=== PATIENT | female | born 1975 | race Caucasian/White ===

== ENCOUNTER 2017-05-20 07:32 | Day surgery (SDC) | payer OTHER ==
[~2017-05-20 07:32] MED LIST: HYDROmorphone 2 MG/ML VIAL IV; LIDOCAINE 1% PF 2 ML VIAL. ID; PROCHLORPERAZINE 10 MG/2 ML VIAL. IV; fentaNYL PF VIAL 100 MCG/2 ML VIAL IV
[2017-05-20] MEDS: IV RINGERS,LACTATED 1000ML 1,000 ML IV (07:57)
[2017-05-20] MEDS ORDERED: MIDAZOLAM HCL/PF 2 MG/2 ML VIAL. (08:21)
[2017-05-20] MEDS ORDERED: ROCURONIUM 100 MG/10 ML VIAL. (08:21)
[2017-05-20] MEDS ORDERED: fentaNYL PF VIAL 100 MCG/2 ML VIAL ×2 (08:21→09:49)
[2017-05-20] MEDS ORDERED: DEXAMETHASONE SOD PHOS 20 MG/5 ML VIAL. (08:23)
[2017-05-20] MEDS ORDERED: ONDANSETRON PF 4 MG/2 ML VIAL. (08:23)
[2017-05-20] MEDS ORDERED: LIDOCAINE 2% PF Vial for OR 5 ML VIAL. (08:23)
[2017-05-20] MEDS ORDERED: PROPOFOL 20 ML IV (08:23)
[2017-05-20 08:26] LABS: NEG OBC UR NEG; POS OBC UR POS
[2017-05-20] MEDS: BUPIVACAINE-EPI 0.25%-1:200000 50 ML VIAL. (08:57)
[2017-05-20] MEDS ORDERED: GLYCOPYRROLATE 1 MG/5 ML VIAL. (09:36)
[2017-05-20] MEDS ORDERED: NEOSTIGMINE 10 MG/10 ML VIAL. (09:36)
[2017-05-20] MEDS ORDERED: SEVOFLURANE 61 TO 120 MINUTES. IH (09:43)
[2017-05-20] MEDS: fentaNYL PF VIAL 100 MCG/2 ML VIAL IV ×2 (10:03→10:12)
[2017-05-20] MEDS: MORPHINE SULFATE 4 MG/ML DISP.SYRIN. IV (10:23)
[2017-05-20] MEDS: oxyCODONE/APAP 5/325 1 TAB TABLET PO (10:44)
== END 2017-05-20 11:20 | disposition home or self-care (01) ==
LOC: SURG 07:32
DX: K43.6 Other and unspecified ventral hernia with obstruction, without gangrene (principal); F17.200 Nicotine dependence, unspecified, uncomplicated; F31.9 Bipolar disorder, unspecified; F90.9 Attention-deficit hyperactivity disorder, unspecified type; Z98.51 Tubal ligation status; Z98.890 Other specified postprocedural states; Z91.012 Allergy to eggs
CPT/HCPCS: 49653; 81025; C1781; J0690; J1100; J2250; J2270; J2405; J2704; J2710; J3010; J3490

== ENCOUNTER → 2020-07-31 | Outpatient (CLI) | payer BC ==
[2017-05-20 10:47] VITALS: BP 112/71
[~2020-07-31] MED LIST changes: -HYDROmorphone 2 MG/ML VIAL IV; -LIDOCAINE 1% PF 2 ML VIAL. ID; +LISD40CA3 PO; +OXYC1TAB15 PO; -PROCHLORPERAZINE 10 MG/2 ML VIAL. IV; +ZIPR20CA2 PO; -fentaNYL PF VIAL 100 MCG/2 ML VIAL IV
--- NOTE | 2020-08-05 12:58 | RAD ---
DATE: 07/31/2020 2:22 PM EXAM: MAMMO LUZ SCREENING BILATERAL HISTORY: Screening COMPARISON: None. This is a baseline. Bilateral CC and MLO views of the breasts were performed. Bilateral breast tomosynthesis was performed in CC and MLO projections. This study was interpreted with the benefit of Computerized Aided Detection (CAD). FINDINGS: Breast Density: HETERO The breast parenchyma Is heterogeneously dense, which could reduce sensitivity of mammography. Breast parenchyma level C There are 2 focal asymmetries in the lateral posterior left breast that need additional imaging with spot compression, full-field lateral and possible targeted left breast ultrasound. No suspicious masses, microcalcifications or architectural distortion is present to suggest malignancy in the right breast. The visualized axillae are unremarkable. IMPRESSION: Left breast focal asymmetry x 2, findings for which additional imaging is advised. BI-RADS CATEGORY: 0 INCOMPLETE: NEEDS ADDITIONAL IMAGING EVALUATION AND/OR PRIOR MAMMOGRAMS FOR COMPARISON. RECOMMENDED FOLLOW-UP: ADD ADDITIONAL IMAGING The patient will be contacted to return for additional imaging and a supplemental report will follow. PQRS compliance statement: Patient information was entered into a reminder system with a target due date for the next mammogram. Mammography is a sensitive method for finding small breast cancers, but it does not detect them all and is not a substitute for careful clinical examination. A negative mammogram does not negate a clinically suspicious finding and should not result in delay in biopsying a clinically suspicious abnormality. "Our facility is accredited by the [employer] Mammography Program."
== END ==
LOC: MAMMO 14:01
PROVIDERS: ATTEND Physician Assistant
DX: Z12.31 Encounter for screening mammogram for malignant neoplasm of breast (principal)
CPT/HCPCS: 77063; 77067

== ENCOUNTER → 2020-08-29 | Outpatient (CLI) | payer BC ==
[2017-05-20 10:47] VITALS: BP 112/71
--- NOTE | 2020-08-29 10:49 | RAD ---
Examination: 1. Left digital diagnostic mammogram. 2. Limited left breast ultrasound. INDICATION: 45-year-old woman recalled from baseline screening for focal asymmetries in the posterior upper-outer left breast. COMPARISON: Bilateral mammogram 07/31/2020 TECHNIQUE: Additional 2-D views of the left breast were obtained including a full field left ML view, spot CC and spot left MLO views. Targeted ultrasound of the left breast was then performed spanning the 1 through 3:00 positions, including sonographic survey of the retroareolar region and left axilla . FINDINGS: Additional views of the left breast showed a changing configuration of the questioned asymmetry more medially in a pattern suggesting overlap of benign dense fibroglandular tissue. There was little resi dual architectural distortion in the more lateral asymmetry, associated with an isodense oval mass me asuring approximately 10 mm on mammography. Targeted ultrasound of the lateral left breast confirm the presence of a cluster of cysts at the 3:00 position 7 cm from the nipple measuring approximately 8 mm with somewhat irregular margins and antip arallel orientation with questionable spiculated margins (image 22 of 92 on the cine loop, series 2, on this ultrasound). No left axillary adenopathy. IMPRESSION: Suspicious 8 mm mass in the left 3:00 position 7 cm from the nipple, possibly reflecting cluster of c omplicated cysts. Biopsy with either (preferably) ultrasound or stereotactic mammographic imaging is recommended, preferably with vacuum assistance. BI-RADS Category 4 Findings suspicious for malignancy Biopsy is recommended. Discussed with patient. Recommendations and findings telephoned to the patient 's referring provider Cedric Siu whose medical records manager Denise took the call on his behalf at 10:38 AM on 08/29/2020 Electronically signed by: Naeem Zapata MD (08/29/2020 10:46 AM) [id number]
== END ==
LOC: MAMMO 09:32
PROVIDERS: ATTEND Physician Assistant
DX: N64.89 Other specified disorders of breast (principal)
CPT/HCPCS: 76641; 77065

== ENCOUNTER → 2020-09-13 | Outpatient (CLI) | payer BC ==
[2017-05-20 10:47] VITALS: BP 112/71
[~2020-09-13] MED LIST changes: +LIDOCAINE 1% Multi-Dose 20 ML VIAL. INJ ONE
--- NOTE | 2020-09-13 10:44 | RAD ---
EXAM: ULTRASOUND-GUIDED THYROID FINE-NEEDLE ASPIRATION. HISTORY: Thyroid nodule. Ultrasound-guided biopsy is requested. FINDINGS: The procedure along with its risks and benefits were explained to the patient. They agreed to proceed. A timeout procedure was performed. Sonographic images of the thyroid gland were obtained. The solid 1.3 cm target nodule in the isthmus was adequately visualized for biopsy. The overlying skin was sterilely prepped and infiltrated with 1% lidocaine for local anesthesia. Unde r ultrasound guidance, 4 aspirates were obtained using 25-gauge needles. These were hand delivered to pathology who determined them adequate for diagnosis. A sterile dressing was placed. There were no i mmediate complications. IMPRESSION: 1. Successful ultrasound-guided fine-needle aspiration of the 1.3 cm isthmus thyroid nodule. Electronically signed by: Naeem Zapata MD (09/13/2020 10:42 AM) [id number]
--- NOTE | 2020-09-17 15:08 | PATHOLOGY ---
Note [facility] Accession Number: [id number] TESTS RESULT FLAG UNITS REF RANGE LAB Clinician Provided Cytology Information No. of containers..01 Other (Miscellaneous) Source: THYROID ISTHMUS DIAGNOSIS: THYROID ISTHMUS NEGATIVE FOR MALIGNANT CELLS. B[place] CATEGORY II. SPECIMEN CONSISTS OF BENIGN FOLLICULAR CELLS, COLLOID, AND BLOOD. THIS PATTERN IS CONSISTENT WITH A BENIGN FOLLICULAR NODULE. THIS INTERPRETATION INCLUDES EVALUATION OF A CELL BLOCK. Pathologist ICD10: 02 E04.1 Signed out by: Kun Talbot MD, Pathologist NPI- [id number] Performed by: Lynnette De Jesus, Assistant Manager Quality Management ([facility]) Gross description: 30ML, PINK, 2FX, 4DQ /LCS 09/16/2020 0755 Local FLAG LEGEND: L-Low Normal,H-High Normal,LL-Alert Low,HH-Alert High <-Panic Low,>-Panic High,A-Abnormal,AA-Critical Abnormal Performed at: [facility] [address] [place] [address] [address] [place] [address] Pb Diaz MD, 02 [facility] [address] [place] [address] Kun Talbot MD, Specimen Comment: Report sent to Performed at: [address], [place], [place] [id number] MD Pb Diaz MD Phone: [phone]
== END | disposition home or self-care (01) ==
LOC: US 08:24
PROVIDERS: ATTEND Otolaryngology
DX: E04.1 Nontoxic single thyroid nodule (principal); F90.9 Attention-deficit hyperactivity disorder, unspecified type; Z79.899 Other long term (current) drug therapy; Z87.891 Personal history of nicotine dependence; Z72.89 Other problems related to lifestyle; Z88.8 Allergy status to other drugs, medicaments and biological substances
CPT/HCPCS: 10005; 88173; 88305; J3490; 60300; 76942

== ENCOUNTER → 2020-09-24 | Outpatient (CLI) | payer BC ==
[2017-05-20 10:47] VITALS: BP 112/71
[~2020-09-24] MED LIST changes: -LIDOCAINE 1% Multi-Dose 20 ML VIAL. INJ ONE; +LIDOCAINE 2%/EPI 1:100,000 20 ML VIAL. INJ ONE
--- NOTE | 2020-09-24 17:15 | RAD ---
ADDENDUM #1 Addendum: Pathology results on the stereotactic biopsy of the posterior upper outer left breast mass shows stro mal fibrosis and fibroadenomatous change, focal. This is a benign concordant result. Recommend 6 norma h follow-up left diagnostic mammogram. Electronically signed by: Naeem Zapata MD (09/27/2020 12:53 PM) [id number] ORIGINAL REPORT Stereotactic vacuum assisted biopsy left breast and digital postprocedure left mammogram: Reason for examination: left breast mass. TECHNIQUE AND FINDINGS: The patient was informed and consented for mammographically guided stereotactic biopsy of the mass lo cated in the posterior upper outer quadrant position of the left breast. The patient was placed in up right position against the biopsy table. From the craniocaudal approach, the mass was targeted and bi opsy coordinates were determined. Using sterile technique and following local infiltration of the tis meena with lidocaine, the probe was inserted into the breast to the targeted coordinates. With deep ane sthetic present, twelve 9 gauge vacuum assisted biopsy samples were obtained. The biopsy needle was t hen removed and a david-shaped biopsy clip was then placed through the guide into the biopsy cavity. He mostasis was ensured with direct breast compression for several minutes. The tissue was then placed into a 10% formalin solution and sent to pathology for histologic analysis . A two-view digital mammogram was then obtained which showed the biopsy clip and cavity at the expecte d position. A 1 cm dense mass surrounds the biopsy marker and could reflect postbiopsy changes. The patient tolerated the procedure well and there were no apparent complications. The patient left i n stable condition and will followup with her referring physician, Dr. Childers. IMPRESSION: Left breast 8 mm mass biopsied with stereotactic mammographic imaging guidance. Pathology is pending. Patient will follow up with Dr. Childers. An addendum will be issued once pathology results become available. Electronically signed by: Naeem Zapata MD (09/24/2020 5:12 PM) [id number]
--- NOTE | 2020-09-25 18:06 | PATHOLOGY ---
[facility] Accession Number: [id number] . 01 Material submitted: . breast - LEFT BREAST MASS. Modifiers: left . 01 Clinical history: . LEFT BREAST MASS ABNORMAL MAMMO . 02 Diagnosis: Breast tissue, left breast mass needle biopsies: - Stromal fibrosis and fibroadenomatous change, focal. (JPM:geophysics teacher; 09/25/2020) MBR 09/25/2020 1543 Local . 02 Comment: Sections of the left breast mass needle biopsy reveal fatty breast tissue showing focal areas stromal fibrosis and fibroadenomatous change. There is no atypia or evidence of malignancy. (JPM:geophysics teacher; 09/25/2020) . 02 Electronically signed: . Kun Talbot MD, Pathologist NPI- [id number] . 01 Gross description: . The specimen is received in formalin, labeled "Yusra Finn, left breast mass". Received within a plastic cassette are multiple needle cores of bright yellow fibrofatty tissue measuring 3.5 x 3.0 x 0.7 cm in aggregate dimensions. The specimen is submitted entirely in cassettes A1 through A4. The cold ischemic time is 6 minutes. The total formalin fixation time is seven hours and 35 minutes. (CAA; 09/24/2020) QAC/QAC 09/25/2020 1542 Local . 02 Pathologist provided ICD-10: N60.32 . 02 CPT . 229167 Specimen Comment: A courtesy copy of this report has been sent to [phone] Specimen Comment: [id number], Specimen Comment: Report sent to ,DR ALTAMIRANO / DR CORREIA Performed at: [address] [place] [address] [address], [place], [place] [id number] MD Pb Diaz MD Phone: [phone] Performed at: [address] [id number] MD Kun Talbot MD Phone: [phone]
== END | disposition home or self-care (01) ==
LOC: MAMMO 12:51
PROVIDERS: ATTEND Surgery
DX: N60.32 Fibrosclerosis of left breast (principal); R92.8 Other abnormal and inconclusive findings on diagnostic imaging of breast; Z79.899 Other long term (current) drug therapy; Z98.890 Other specified postprocedural states; Z72.89 Other problems related to lifestyle; Z88.8 Allergy status to other drugs, medicaments and biological substances
CPT/HCPCS: 19081; 77065; J3490; 88305